=== PATIENT | male | born 1965 | race African-American/Black ===

== ENCOUNTER 2017-05-01 08:12 | Emergency (ER) | payer OTHER ==
[~2017-05-01] VITALS: Ht 180.3 cm; Wt 137.0 kg
[2017-05-01 08:22] VITALS: BP 187/110; PULSE 78; RESP 20; TEMP 98.2; O2SAT 96
[2017-05-01 08:37] VITALS: BP 167/91; PULSE 75; RESP 20
[2017-05-01] MEDS ORDERED: IBUPROFEN 600 MG TAB PO ONE (08:45)
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
[2017-05-01] MEDS ORDERED: CYCL1TAB29 PO (10:09)
== END 2017-05-01 10:44 | disposition home or self-care (01) ==
LOC: NEPE 08:12
DX: S46.912A Strain of unspecified muscle, fascia and tendon at shoulder and upper arm level, left arm, initial encounter (principal); M25.561 Pain in right knee; V43.92XA Unspecified car occupant injured in collision with other type car in traffic accident, initial encounter
CPT/HCPCS: 71010; 72125; 72170; 73030; 73564; 99285